=== PATIENT | female | born 1955 | race Hispanic/Latino ===

== ENCOUNTER 2018-12-15 15:35 | Outpatient (CLI) | payer MEDICARE, OTHER ==
--- NOTE | 2018-12-16 16:25 | Mammography Report ---
IMPLANT MAMMOGRAM: Bilateral breast imaging was done with standard and displacement technique. The parenchymal pattern is heterogeneous and symmetrically seen ventral to each implant. The implant contours are smooth. No suspicious findings or secondary signs of malignancy are seen. No significant change is identified compared to prior exam in October 2015. CAD was utilized. CONCLUSION: Negative implant mammogram. RECOMMENDATION: Routine follow-up. BI-RADS CATEGORY: 1 = Negative ACR BI-RADS MAMMOGRAPHIC CODES: 0 = Needs additional imaging evaluation; 1 = Negative; 2 = Benign; 3 = Probably benign; 4 = Suspicious; 5 = Malignant; 6 = Known biopsy-proven malignancy COMMENT: 1. Dense breast tissue, i.e., adenosis, fibrocystic changes, etc., may obscure an underlying neoplasm. 2. Approximately 10% of cancers are not detected with mammography. 3. A negative mammography report should not delay biopsy if a clinically suspicious mass is present. COMMENT: Patient follow-up letters are generated in [employer].
== END 2018-12-15 15:36 | disposition home or self-care (01) ==
LOC: SPVWC 15:35
PROVIDERS: ATTEND Obstetrics & Gynecology
DX: Z12.31 Encounter for screening mammogram for malignant neoplasm of breast (principal)
CPT/HCPCS: 77067